=== PATIENT | female | born 1960 | race Caucasian/White ===

== ENCOUNTER → 2017-10-28 14:12 | Outpatient (CLI) | payer MEDICARE, OTHER, MEDICAID, SELFPAY ==
[2017-10-17 18:07] VITALS: TEMP 37
--- NOTE | 2017-10-28 | DI.MRI.S_ITS ---
PROCEDURE: MR KNEE LT WO CON INDICATIONS: LEFT KNEE PAIN. TECHNIQUE: Noncontrast sagittal PD fast spin echo and T2 fast spin echo with fat saturation, sagittal 3-D FLASH with fat saturation; coronal T1 spin echo and PD fast spin echo with fat saturation, and axial PD fast spin echo with fat saturation through the knee. COMPARISON: [facility], CR, XR KNEE LT 3V, 10/17/2017, 20:18. FINDINGS: Image quality: Diagnostic. Bones and joint: There is no acute fracture or dislocation. No suspicious osseous lesions are evident. There is a small knee joint effusion with an associated Rivers's cyst. Irregularity of the hyaline articular cartilage with small full-thickness defects are noted involving the cartilage within the medial and lateral tibiofemoral compartments. No large cartilaginous defects are identified. Cruciate ligaments: The anterior and posterior cruciate ligaments are intact. However, there is thickening and increased signal involving the anterior cruciate ligament. Menisci: There is a complex tear noted involving the body and posterior horn of the medial meniscus with partial-thickness tearing involving the posterior meniscal root. There is a predominant oblique tear involving the inferior articular surface at the junction of the body and posterior horn. Additional irregularity involving the femoral articular surface is located near this region, as well. The lateral meniscus demonstrates a very small radial tear along the free edge of the body of the lateral meniscus (image 18, series 7). No additional lateral meniscal tears are identified. Medial structures: The medial collateral ligament is intact. The semimembranosus tendon insertion is intact. The imaged portions of the pes anserinus tendons are unremarkable. No significant fluid is contained within the pes anserinus bursa. Lateral structures: The popliteal tendon is intact. The lateral collateral ligament proper (fibular collateral ligament) and the proximal tibiofibular ligaments are intact. The distal aspect of the biceps femoris tendon and the iliotibial band are intact. Anterior structures: The quadriceps and patellar tendons are intact. There is no significant edema in the infrapatellar fat pad. IMPRESSION: 1. Mild degenerative changes of the left knee. 2. Small knee joint effusion. 3. Probable anterior cruciate ligament sprain versus chronic ligamentous degeneration. Please correlate clinically. 4. Complex tear of the body and posterior horn of the medial meniscus. No displaced fragments. 5. Small radial tear of the free edge of the body of the lateral meniscus. Dictated by: Edward Roberts M.D. on 10/28/2017 at 16:23 Approved by: Edward Roberts M.D. on 10/28/2017 at 16:26
== END ==
PROVIDERS: Family Provider Physician Assistant; PCP Physician Assistant; Visit Provider Nurse Practitioner Family
DX: M17.12 Unilateral primary osteoarthritis, left knee (principal); M25.462 Effusion, left knee; S83.242A Other tear of medial meniscus, current injury, left knee, initial encounter; S83.282A Other tear of lateral meniscus, current injury, left knee, initial encounter
CPT/HCPCS: 73721